=== PATIENT | female | born 1985 | race Caucasian/White ===

== ENCOUNTER 2024-05-27 19:03 | Emergency (ER) | payer SELFPAY ==
[2024-05-27 19:05] VITALS: BP 126/91
--- NOTE | 2024-05-27 19:50 | ED.GENMED ---
History of Present Illness
General
Chief Complaint: Abdominal Pain
Source: patient
Exam Limitations: none
Time Seen by Provider: 05/27/24 19:28
History of Present Illness
History of Present Illness:
This is a 39 year old female that comes in with c/o abd pain. States that she has abd pain that has been going on for a couple of months. Sates that over the last week it has gotten worse an then the past few days it is even more painful. State that
sometimes it just aches and others it is a sharp pain. States that it seemed to be more on the left at first abd today it was on the right under her ribs. States that she feels SOB with the pain, has had nausea and diarrhea that comes and goes.
States that she has a headache and is lightheaded. Denies any fever, chills, chest pain, vomiting, urinary burning.
Past History
Past History
ED Past Medical History: None; Negative Asthma, HTN, Hypercholesterolemia or NIDDM
ED Past Surgical History: None
Social History
Tobacco: Non-smoker
Alcohol: Occasional
Personal:
Living: with family
Review of Systems
Review of Systems
All Other Systems: ROS reviewed and negative except as documented in HPI and ROS
Constitutional: Reports no symptoms; Denies fever or chills
EENT: Reports no symptoms
Respiratory: Reports trouble breathing (Occasional with pain); Denies cough
Cardiac: Reports no symptoms; Denies chest pain
ABD/GI: Reports abdominal pain, nausea and diarrhea; Denies vomiting
: Reports no symptoms; Denies dysuria, frequency or urgency
Musculoskeletal: Reports no symptoms
Skin: Reports no symptoms
Neurological: Reports headache and other (lightheaded); Denies dizzy
Psychiatric: Reports no symptoms
Phy Exam
General Physical Exam
General Presentation: well appearing and no apparent distress
General age: appears stated age
General Skin: warm and dry
General Habitus: normal
General Mental: alert
General Hydration: appears well hydrated
ENT Exam
ENT Exam: TM's normal, pharynx normal and neck supple
Eye Exam
Eye Exam: EOMI
Cardiovascular Exam
Cardiovascular Exam: regular rate/rhythm, no edema, no murmur and normal peripheral pulses
Pulmonary Exam
Pulmonary Exam: lungs clear, no respiratory distress, no rales, chest non tender, no crackles, no rhonchi, no wheezing and no cough
Gastrointestinal Exam
Gastrointestinal Exam: normal bowel sounds, soft, no organomegaly, no pulsatile mass, non distended and tender (Mid abd tenderness with palpation)
Musculoskeletal Exam
Musculoskeletal Exam: full ROM and no edema
Skin Exam
Skin Exam: normal color, warm/dry, no rash and no petechia
Psychiatric Exam
Psychiatric Exam: normal mood/affect
Course
Orders/Labs/Results
Orders:
Orders
05/27/24 19:49
Iohexol [Omnipaque] See Protocol PO NOW STA
Pantoprazole [Protonix IV] 40 mg IV NOW STA
Test Result ONCE
05/27/24 19:50
CT Abd/pel W Iv And Oral Contr Urgent
Comment:
Reason For Exam: Mid abd pain
05/27/24 20:00
Complete Blood Count/With Diff Urgent
Comprehensive Metabolic Panel Urgent
HCG, Serum Qualitative Screen Urgent
Lipase Urgent
Comment: ADD ON
05/27/24 20:40
Urinalysis Reflex To Culture Urgent
Date Specimen was Collected: 05/27/24
Time Specimen was Collected: 20:39
Urine Microscopic Reflex Cult Urgent
Urine Culture Urgent
RODRIGUE Source: U
Specimen Description:
Date Specimen was Collected: 05/27/24
Time Specimen was Collected: 20:39
05/27/24 23:43
Add On- LAB Urgent
Tests Added?: Lipase
Abnormal Lab Results
05/27/24 05/27/24
20:00 20:40
RBC 4.02 L 10^6/uL
(4.20-5.40)
Hct 35.9 L %
(37.0-47.0)
MCH 31.8 H pg
(27.0-31.0)
Leukocyte Esterase Rfl Trace A
(Negative)
Urine WBC (Reflex) 11-15 A /HPF
(0-5)
Urine Bacteria (Reflex) Few A
(Negative)
05/27/24 20:00
05/27/24 20:00
Urine contaminated. Labs unremarkable. HCG negative. Lipase normal at 83
Vital Signs
Initial and Last Documented VS:
Initial Vital Signs
Temp Pulse Resp BP Pulse Ox
98.4 F 72 18 126/91 99
05/27/24 19:05 05/27/24 19:05 05/27/24 19:05 05/27/24 19:05 05/27/24 19:05
Last Documented Vital Signs
Temp Pulse Resp BP Pulse Ox
98.4 F 61 16 111/72 100
05/27/24 19:05 05/28/24 00:23 05/28/24 00:23 05/28/24 00:23 05/28/24 00:23
MDM/Problems Addressed
Differential Diagnosis Includes:
Gastritis, Colitis, Crohn's
MDM/Problems Addressed:
This is a 39 year old female that comes in with c/o abd pain. states that this has been going on for a couple months but recently the pain has gotten worse and she couldn't wait anymore.
Will check labs and get CT scan.
back into see patient. Explained that her blood work is normal and her CT shows that her common bile duct is mildly dilated. With normal labs do not feel that patient is obstructed. Patient to follow up with the family doctor. Patient to return with
increased pain or any other concerns .
Chronic conditions affecting care:
NA
Acute Exacerbation and/or Progression of Chronic Illness:
NA
*Radiology
Radiology exam reviewed: radiology read reviewed (CT-The common bile duct appears mildly dilated measuring 6.6mm there is no associated intrahepatic biliary ductal dilation. recommend correlation with labs values for possible biliary obstruction.
Normal appendix. )
*Pulse Oximetry
Patient hypoxic: no
*EKG
Interpreted by ED Provider?: NA
Rate: EKG- N/A
*Chief Gauger Interpretation
Rate: Chief Gauger- N/A
*Critical Care Note
Total Time (30-74mins, 75-104mins- exclusive of procedures): Not Applicable
ED Attending Note
-
Portions of this chart may have been created with voice recognition software.� Occasional wrong word or��sound alike� substitutions may have occurred due to the inherent limitations of voice recognition software.
Discharge Plan
Departure
Patient Disposition: Home (Routine Discharge)
Date of Disposition: 05/28/24
Time of Disposition: 00:08
Patient with high blood pressure during this ER visit?: No
Condition: Good
Covid-19: Not Applicable
Discharge Problem:
Abdominal pain, Gastritis
Instructions: Gastritis (DC), Abdominal Pain
Prescriptions:
New
pantoprazole [Protonix] 40 mg tablet,delayed release (DR/EC)
40 mg PO DAILY Qty: 30 0RF
Referrals:
Buddy Lorenzo MD [Family Provider] - Call in 1-3 days for appt
Activity Restrictions/Additional Instructions:
As discussed, your blood work is normal. Your CT shows that the Common bile duct is slightly dilated but with normal labs, you most likely don't have a stone that is stuck. Please follow up with the family doctor for further evaluation. You have
had a prescription for Protonix sent to your Pharmacy. Please try and deceases your caffeine intake. IF YOU HAVE VOMITING, FEVER, INCREASED OR CHANGING PAIN, OR YOU HAVE ANY OTHER CONCERNS PLEASE RETURN TO THE EMERGENCY ROOM.
Interventions
Interventions:
*Risk Screen - Suicide Last Done: 05/27/24 20:08
*General Assessment Last Done: 05/27/24 19:05
*Neglect/Abuse Screening Last Done: 05/27/24 20:08
ED- Fall Risk Assessment Last Done: 05/27/24 20:08
*ED COVID-19 Vaccine History Last Done: 05/27/24 20:08
*Nursing Disposition Last Done: 05/28/24 00:24
HL-Dslvmq-Hcalgmwnyq Assessment Last Done: 05/27/24 20:09
Discharge Date and Time
Discharge Date/Time: 05/28/24 00:24
Print Language: [id number]
[2024-05-27] MEDS: PROTONIX IV 40 MG IV (20:01)
[2024-05-27] MEDS: OMNIPAQUE 50 ML PO (20:03)
[2024-05-27 20:11] LABS: % Basophils 0.6 % (0-2); % Eosinophils 1.5 % (0-6); % Immature Granulocytes 0.3 % (0-0.5); % Lymphocytes 45.6 % (20.5-51.1); % Monocytes 8.9 % (1.7-9.3); % Neutrophils 43.1 % (42.2-75.2); Absolute Eosinophils 0.1 10^3/uL (0-0.7); Absolute Monocytes 0.6 10^3/uL (0.1-0.6); Absolute Neutrophils 2.8 10^3/uL (1.4-6.5); Hematocrit 35.9 % (37.0-47.0); Hemoglobin 12.8 g/dL (12.0-16.0); Mean Corp Hgb Conc. 35.7 g/dL (33.0-37.0); Mean Corpuscular Hgb 31.8 pg (27.0-31.0); Mean Corpuscular Volume 89.3 fL (81.0-99.0); Mean Platelet Volume 9.4 fL (7.4-10.4); Nucleated Red Blood Cells % 0 %; Platelet Count 316 10^3/uL (130-400); Red Blood Cell Count 4.02 10^6/uL (4.20-5.40); White Blood Cell Count 6.6 10^3/uL (4.8-10.8)
[2024-05-27 20:30] LABS: HCG, Serum Qualitative Screen Negative
[2024-05-27 20:33] LABS: ALT (SGPT) 15 U/L (0-35); AST (SGOT) 21 U/L (14-36); Albumin 4.4 g/dl (3.5-5.0); Alkaline Phosphatase 68 U/L (38-126); Blood Urea Nitrogen 12 mg/dl (7-17); Calcium 9.7 mg/dl (8.4-10.2); Carbon Dioxide 24 mmol/L (22-30); Chloride 105 mmol/L (98-107); Glucose 96 mg/dl (70-99); Sodium 141 mmol/L (135-145); Total Bilirubin 0.4 mg/dl (0.2-1.3); Total Protein 6.6 g/dl (6.3-8.2); eGFR > 60.00
[2024-05-27 20:42] VITALS: BP 108/84
[2024-05-27 21:00] LABS: Urine Albumin Negative (Neg - Trace); Urine Bilirubin Negative (Negative); Urine Character Clear (Clear); Urine Color Straw; Urine Glucose Negative (Negative); Urine Ketone Negative (Negative); Urine Leukocyte Trace (Negative); Urine Nitrite Negative (Negative); Urine Occult Blood Negative (Negative); Urine Urobilinogen Negative (Neg - 1+)
[2024-05-27 21:11] LABS: Urine Squamous Cell >30 /LPF (Few)
[2024-05-27 21:12] LABS: Urine Bacteria Few (Negative)
[2024-05-28 00:15] LABS: Lipase 83 U/L (23-300)
[2024-05-28 00:23] VITALS: BP 111/72
== END 2024-05-28 00:24 | disposition home or self-care (01) ==
LOC: EMR 19:03
PROVIDERS: Clinical Nurse Specialist Family Health; EMERGENCY PHYSICIAN Emergency Medicine; FAMILY PHYSICIAN Family Medicine
DX: K29.70 Gastritis, unspecified, without bleeding (principal)
CPT/HCPCS: 96374; 99284; 74177; 80053; 81003; 81015; 83690; 84703; 85025; 87086; Q9967